=== PATIENT | male | born 1950 | race Caucasian/White ===

== ENCOUNTER 2022-06-20 13:04 | Outpatient (CLI) | payer MEDICARE, BC, SELFPAY ==
--- NOTE | ~2022-06-20 | CT_ITS ---
EXAMINATION: CT cervical spine wo con DATE: 06/20/2022 13:39 INDICATION: Right neck pain. TECHNIQUE: Computed tomography (CT) of the cervical spine was performed without intravenous contrast. Automated exposure control and iterative reconstruction technique were employed. The dose-length pro duct was 529.26 mGy-cm. COMPARISON: Cervical spine radiographs 06/11/2022 FINDINGS: There is 2 mm anterolisthesis of C5 on C6. There is 6 degrees dextrocurvature of cervical s pine. There are changes of anterior fusion procedure from C3 to C7 with discectomies, healed interbod y bone graft, and multiple plates with screws. No lucencies to suggest loosening or infection. Verteb ral body heights are normal. Intervertebral disc heights are normal. There are bridging endplate oste ophytes at T2-T3. 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 There is developmental central canal stenosis in cervical spine. The following disc levels are spec ifically discussed: C2-C3: There is severe bilateral uncovertebral joint osteoarthritis. There is severe bilateral facet joint osteoarthritis. There is mild bilateral neural foraminal stenosis. There is mild central canal stenosis. C3-C4: There is moderate bilateral uncovertebral joint hypertrophy. There is ankylosis of the facet j oints with severe hypertrophy. There is moderate bilateral neural foraminal stenosis. There is modera te central canal stenosis. C4-C5: There is mild bilateral uncovertebral joint hypertrophy. There is mild right and severe left f acet joint osteoarthritis. There is mild left neural foraminal stenosis. There is mild central canal stenosis. C5-C6: There is mild bilateral uncovertebral joint hypertrophy. There is moderate right facet joint o steoarthritis. There is ankylosis of left facet joint with severe hypertrophy. There is mild bilatera l neural foraminal stenosis. There is mild central canal stenosis. C6-C7: There is moderate bilateral uncovertebral joint hypertrophy. There is mild right facet joint h ypertrophy. There is mild right neural foraminal stenosis. There is moderate central canal stenosis. C7-T1: There is no uncovertebral joint osteoarthritis. There is severe bilateral facet joint osteoart hritis. There is mild left neural foraminal stenosis. There is no central canal stenosis. IMPRESSION: 1. Anterior fusion procedure from C3 to C7. 2. Moderate cervical spondylosis. Reviewed, dictated and finalized at location A. [employer]
== END 2022-06-20 13:05 | disposition home or self-care (01) ==
PROVIDERS: PCP Physician Assistant Medical; Visit Provider Physician Assistant Medical
DX: M47.892 Other spondylosis, cervical region (principal); Z98.1 Arthrodesis status
CPT/HCPCS: 72125

== ENCOUNTER 2022-12-09 13:56 | Outpatient (CLI) | payer MEDICARE, BC, SELFPAY ==
--- NOTE | 2022-12-09 16:52 | WPDPFTINT ---
PFT Procedure Performed PFT Procedure Performed Spirometry with Pre/Post Bronchodilator Plethysmography (Lung Vol) Diffusing Cap (DLCO) Flow Vol Loop PFT Interpretation This is a pulmonary function test with pre and post-bronchodilator spirometry, plethysmography and diffusing capacity. The test was performed and results interpreted in accordance with the 2019 and 2005 ATS/ERS Task Force guidelines respectively using the Global Lung Function Initiative-2012 reference equations. Patient demonstrated good effort and cooperation. Reproducibility criteria were met. The quality of the pre bronchodilator spirometry maneuver was Grade A and post bronchodilator spirometry maneuver was Grade A. Findings: Spirometry: The contour the inspiratory and expiratory flow tracing are normal. The pre bronchodilator FVC is 4.56 L, 93% predicted. The pre bronchodilator FEV1 is 3.04 L, 84% predicted. The pre bronchodilator FEV1: FVC ratio 67%. The post bronchodilator FVC is 4.86 L, representing a 7% increase. The post bronchodilator FEV1 is 3.26 L, representing a 7% increase. The post bronchodilator FEV1: FVC ratio 67%. Plethysmography: The total lung capacity is 7.82 L, 97% predicted. The functional residual capacity is 4.47 L, 102% predicted. The residual volume is 3.21 L, 115% predicted. Diffusion capacity: The diffusing capacity unadjusted for hemoglobin and carboxyhemoglobin is 30.5, 111% predicted. The diffusing capacity adjusted for alveolar volume is 4.40, 124% predicted. Impression: The spirometry is normal without evidence of an obstructive abnormality. There is no significant improvement after inhaling a single dose of albuterol. The lung volumes are normal. The diffusing capacity is normal. There are no prior studies for comparison
== END 2022-12-09 13:57 | disposition home or self-care (01) ==
LOC: ANHPFT 13:56
PROVIDERS: PCP Family Medicine; Visit Provider Physician Assistant Medical
DX: R05.9 Cough, unspecified (principal)
CPT/HCPCS: 94060; 94726; 94729